=== PATIENT | male | born 1995 | race American Indian/Alaskan Native ===

== ENCOUNTER 2018-01-08 21:23 | Emergency (ER) | payer OTHER ==
[2018-01-08 21:31] VITALS: BP 123/77
[2018-01-08] MEDS ORDERED: MOTRIN PO ONE (22:41)
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
== END 2018-01-08 23:02 | disposition home or self-care (01) ==
LOC: ED 21:23
DX: S16.1XXA Strain of muscle, fascia and tendon at neck level, initial encounter (principal); R51 Headache; V43.62XA Car passenger injured in collision with other type car in traffic accident, initial encounter; Y93.89 Activity, other specified; Y92.89 Other specified places as the place of occurrence of the external cause; Y99.8 Other external cause status
CPT/HCPCS: 99282